=== PATIENT | male | born 1990 | race Caucasian/White ===

== ENCOUNTER → 2020-09-09 | Outpatient (CLI) | payer OTHER | LOC: EROP 16:13 | DX: R05 Cough (principal); R50.9 Fever, unspecified; Z20.822 Contact with and (suspected) exposure to COVID-19 | CPT/HCPCS: U0002 ==

== ENCOUNTER → 2021-04-21 | Outpatient (CLI) | payer OTHER | LOC: LAB 11:47 | DX: Z23 Encounter for immunization (principal) | CPT/HCPCS: 91301 ==